=== PATIENT | female | born 1965 | race American Indian/Alaskan Native ===

== ENCOUNTER 2021-04-30 16:35 | Emergency (ER) | payer SELFPAY ==
--- NOTE | 2021-04-30 17:35 | Emergency Department Report ---
Stated Complaint: FEEL SEIZURE COMING ON DUE TO STRESS Time Seen by Provider: 04/30/21 17:31 - HPI History of Present Illness: 55-year-old female patient with history of epilepsy presents to the emergency department "because I thought I was going to have a seizure." Patient came to the emergency department to accompany another patient. She came to the attention of the hospital security infrastructure engineer, which resulted in a verbal disagreement, at which point she asked to be evaluated "because I felt a seizure coming on." Patient takes multiple antiepileptic medications. States she has been compliant with her medication regimen. Patient also takes Lorazepam as needed for anxiety. No further complaints. - ROS Review of Systems: GENERAL: Negative for fever. CARDIOVASCULAR: Negative for chest pain. PULMONARY: Negative for shortness of breath. GASTROINTESTINAL: Negative for abdominal pain. MUSCULOSKELETAL: Negative for back pain. NEUROLOGICAL: Negative for headache. INTEGUMENTARY: Negative for rash. - Exam Vital Signs: Patient refused vital signs. Physical Exam: General: Awake, appropriately interactive, no acute distress. Neck: Supple. Full range of motion intact. Cardiovascular: Normal peripheral perfusion. Pulmonary: No respiratory distress. Patient is speaking normally without use of accessory muscles. Skin: No apparent rashes or lesions. Neurological: No facial asymmetry. Speech is clear. Follows commands. Patient is alert and oriented. Musculoskeletal: Moves all four extremities spontaneously with normal range of motion. Psych: Cooperative. Appropriate mood and affect. ED Medical Decision Making - Medical Decision Making Patient eloped from the triage area before vital signs could be obtained. States she "feels better now and is going to take Lorazepam." ED Disposition for MSE Clinical Impression: Eloped from emergency department Disposition: 07 ELOPED Is pt being admited?: No Condition: Undetermined Time of Disposition: 17:34
== END 2021-04-30 17:35 | disposition left against medical advice (07) ==
LOC: ED 16:35